=== PATIENT | male | born 1975 | race Caucasian/White ===

== ENCOUNTER 2020-02-02 09:46 | Emergency (ER) | payer OTHER, SELFPAY ==
--- NOTE | ~2020-02-02 | XR_ITS ---
EXAMINATION: XR ankle RT min 3V DATE: 02/02/2020 10:15 INDICATION: Right ankle injury. TECHNIQUE: 4 views of right ankle were obtained. COMPARISON: None. FINDINGS: There is heterotopic ossification distal to lateral malleolus. There is mild ankle joint os teoarthritis. There is an enthesophyte at plantar aspect of calcaneal tuberosity. IMPRESSION: 1. Heterotopic ossification distal to lateral malleolus, which may be acute avulsion fracture or find ing from old injury. 2. Mild ankle joint osteoarthritis. Reviewed, dictated and finalized at location A. IMPRESSION: 1. Heterotopic ossification distal to lateral malleolus, which may be acute avu lsion fracture or finding from old injury. 2. Mild ankle joint osteoarthritis.
[2020-02-02 09:56] VITALS: BP 151/92; PULSE 61; RESP 18; TEMP 36.7; O2SAT 99
--- NOTE | 2020-02-02 10:02 | ED.LOWEXIN ---
HPI - Extremity Injury (Lower) General Chief Complaint: Extremity Injury, Lower Stated Complaint: right ankle injury Time Seen by Provider: 02/02/20 10:12 Source: patient Mode of arrival: ambulatory Limitations: no limitations History of Present Illness HPI Narrative: patient presents with right ankle pain. patient has a history of an old fx to ankle. patient states fell in hole one week ago and rolled ankle. has had lateral ankle pain since the incident. no swelling no bruising no deformity no numbness or tingling to ankle. complaint: ankle injury Injury: Right: ankle Place: home Severity: mild Relieving factors: NSAID Exacerbating factors: weight bearing Related Data Home Medications Medication Instructions Recorded Confirmed lisinopril 10 mg PO DAILY 02/02/20 02/02/20 meloxicam 15 mg PO DAILY 02/02/20 02/02/20 tramadol 50 mg PO Q6H PRN 02/02/20 02/02/20 Allergies Allergy/AdvReac Type Severity Reaction Status Date / Time No Known Allergies Allergy Verified 02/02/20 10:04 Review of Systems Review of Systems: Narrative: CONSTITUTIONAL: Denies fever, chills, or sweats. EYES: Denies visual changes, redness, or discharge. ENT: Denies rhinorrhea, congestion, sore throat, or otalgia. CARDIOVASCULAR: Denies chest pain, palpitations, or edema. RESPIRATORY: Denies cough or dyspnea. GASTROINTESTINAL: Denies abdominal pain, nausea, vomiting, or diarrhea. GENITOURINARY: Denies dysuria or hematuria. SKIN: Denies rash or itching. MUSCULOSKELETAL: Denies back pain, joint pain, or myalgia. NEUROLOGIC: Denies headache, numbness, or weakness. PSYCHIATRIC: Denies anxiety or depression. Patient reports ankle pain All systems reviewed & are unremarkable except as noted in HPI and below Constitutional: Constitutional: Reports as per HPI and Reports no additional constitutional complaints PMFSH Comments At time of signature, agree with nursing past medical, surgical, social and family history. There is no relevant family history pertinent to the presenting complaint Exam Narrative: Exam Narrative: GENERAL: Well-appearing, well-nourished, and in no acute distress. HEAD: Normocephalic, atraumatic. EYES: PERRLA and EOMI. ENT: Nares clear, no rhinorrhea or epistaxis. Mucous membranes moist. NECK: Supple. CHEST: Clear to auscultation. No respiratory distress. HEART: Regular rate and rhythm. No murmur heard. Normal peripheral pulses. ABDOMEN: Soft, nontender, nondistended, normal active bowel sounds. EXTREMITIES: Normal range of motion. No edema. ANKLE EXAM SKIN INTACT. NORMAL DP PULSE, NORMAL CAP REFILL. NORMAL SENSATION. SKIN: Warm, dry, no rash. NEURO: No focal deficits. Alert and oriented x3. [place] Coma Scale Eye Opening: Spontaneous 4 Deanna Coma Scale Motor: Obeys Commands 6 [place] Coma Scale Verbal: Oriented 5 Deanna Coma Scale Total 15 She said that she Course Vital Signs Vital signs: Vital Signs Temperature 36.7 C 02/02/20 09:56 Pulse Rate 61 02/02/20 09:56 Respiratory Rate 18 02/02/20 09:56 Blood Pressure 151/92 H 02/02/20 09:56 Pulse Oximetry 99 02/02/20 09:56 Temperature 36.7 C 02/02/20 09:56 Pulse Rate 61 02/02/20 09:56 Respiratory Rate 18 02/02/20 09:56 Blood Pressure 151/92 H 02/02/20 09:56 Pulse Oximetry 99 02/02/20 09:56 Please CHANCE schedule a followup visit with your personal physician for further evaluation and treatment. Including recheck and discussion of your blood pressure. If your symptoms persist, change or worsen significantly before you can contact your personal physician then please, without delay, go to the emergency department for further evaluation DISCUSSED WITH PATIENT, X-RAY FINDINGS AND THAT X-RAYS WERE NEGATIVE FOR FRACTURE OR DISLOCATIONS. X-RAYS CANNOT RULE OUT TENDON, LIGAMENT, OR SOFT TISSUE STRUCTURE INJURIES AND IF SYMPTOMS PERSIST OR WORSEN, FURTHER EVALUATION MAY BE WARRANTED FOR POTENTIAL IMAGING. ADVISED REST, ICE, COMPRESSION, AND CHANTEL
== END 2020-02-02 10:47 | disposition home or self-care (01) ==
PROVIDERS: Emergency Provider Nurse Practitioner Family; PCP Family Medicine
DX: S96.911A Strain of unspecified muscle and tendon at ankle and foot level, right foot, initial encounter (principal); X50.9XXA Other and unspecified overexertion or strenuous movements or postures, initial encounter; I10 Essential (primary) hypertension
CPT/HCPCS: 73610; 99213; G0463